=== PATIENT | female | born 1980 | race Two or more races ===

== ENCOUNTER 2021-03-06 19:24 | Observation (INO) ==
[2021-03-06] MEDS ORDERED: MAG SULFATE 4GM BOLUS FROM BAG IV ONE (20:22)
[2021-03-06] MEDS ORDERED: MAG SULFATE 6GM BOLUS FROM BAG IV ONE (20:22)
[2021-03-06] MEDS ORDERED: hydrALAZINE HCL 20 MG/ML VIAL IV STA (20:22)
[2021-03-06] MEDS ORDERED: BETAMETH SOD PHOS/ACETATE IA 6 MG/ML IM STA (20:29)
[2021-03-06] MEDS ORDERED: LACTATED RINGER'S 1,000 ML IV SCH (20:30)
[2021-03-06] MEDS ORDERED: MAGNESIUM SULFATE / WTR 40 GM/1,000 ML BAG IV SCH (20:45)
--- NOTE | 2021-03-06 20:47 | History & Physical Report ---
Date of Service March 06, 2021 Assessment & Plan (1) Chronic hypertension with superimposed preeclampsia: History of Present Illness Chief Complaint: high blood pressure Primary Care Provider: Edwin Bustamante MD 40 F [id number] at 26.2 weeks with elevate BP at home and headaches all day not feeling well today. Denies visual symptoms or any dizziness. Is on Labetalol currently 300 mg bid and 81 mg ASA daily. Has history of chronic hypertension before getting . Strong family history of hypertension. No contractions or bleeding. Good movement. Denies any epistric pain or RUQ pain. No nausea or vomiting. Allergies Allergy/AdvReac Type Severity Reaction Status Date / Time No Known Allergies Allergy Unverified 05/13/20 12:23 Home Medications Medication Instructions Recorded Confirmed Type [id number] fumarate-FA 1 tab PO DAILY 05/13/20 05/13/20 History [] lactobacillus combination no.4 3,000 mmu cells PO DAILY 05/13/20 05/13/20 History [Probiotic] Patient History Medical History (Updated 03/06/21 @ 21:02 by Tyrell North MD) No pertinent past medical history Social History Smoking Status: Former smoker Second Hand Exposure: No; Hx Alcohol Use: No Hx Substance Use: No Preferred Language: Armenian Communication Ability: Effective 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 Beliefs That Will Affect Care: None marital status: Current Living Situation: Spouse and Family Current Living Situation Comment: and step daughter Feels Safe at Home: Yes Safety Concerns: Feels Safe 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 x1 Review of Systems All systems reviewed & are unremarkable except as noted in HPI & below positive headaches today Physical Exam 2 Constitutional: WD/WN, vitals as above + ill appearing Eyes: PERRL, conjunctivae normal, anicteric sclerae Neck: trachea midline, no thyromegaly Respiratory: normal respiratory effort, lungs clear to auscultation Cardiovascular: RRR, no murmur, no edema Rate/Rhythm: regular rate Skin: no rashes, warm and dry 1+ edema Neurologic: patellar DTR's 2+ bilat, sensation intact reflexes are brisk Psychiatric: A+Ox3, euthymic affect Genitourinary: OB Exam Monitor Tracing: + external FHT monitor used, + external uterine monitor used, + category I and + normal FHT variability Results & Data ([facility]) Vital Signs (Past 12 Hours) Vital Signs Temp Pulse Resp BP 03/06/21 20:31 79 214/116 H 03/06/21 20:19 83 179/108 H 03/06/21 20:09 81 182/102 H 03/06/21 20:00 74 183/101 H 03/06/21 19:51 36.7 C 76 16 200/117 H Laboratory Results Laboratory Results - last 72 hr 03/06/21 20:38 WBC 10.80 RBC 3.69 L Hgb 11.5 L Hct 33.1 L MCV 89.7 MCH 31.2 MCHC 34.7 RDW Std Deviation 41.7 RDW Coeff of Ebonie 12.8 Plt Count 239 MPV 9.7 Immature Gran % (Auto) 0.4 Neut % (Auto) 67.1 Lymph % (Auto) 23.2 [place] % (Auto) 7.9 Eos % (Auto) 1.2 Baso % (Auto) 0.2 Neut # (Auto) 7.25 H Lymph # (Auto) 2.51 [place] # (Auto) 0.85 H Eos # (Auto) 0.13 Baso # (Auto) 0.02 Immature Gran # (Auto) 0.04 H Code Status & VTE Plan VTE Prophylaxis Plan VTE Prophylaxis will be ordered: No Monitoring External Monitor Cat 1
[2021-03-06 20:48] LABS: Basophils # (auto) 0.02 K/uL (0-0.2); Basophils % (auto) 0.2 %; Eosinophils # (auto) 0.13 K/uL (0-0.5); Eosinophils % (auto) 1.2 %; Hematocrit (blood only) 33.1 % (37-47); Hemoglobin 11.5 g/dL (12.0-16.0); Immature Granulocytes # (auto) 0.04 K/uL (0.00-0.02); Immature Granulocytes % (auto) 0.4 %; Lymphocytes # (auto) 2.51 K/uL (1.2-3.4); Lymphocytes % (auto) 23.2 %; Mean Corpuscular Hemoglobin 31.2 pg (25-34); Mean Corpuscular Volume 89.7 fL (80-100); Mean Platelet Volume 9.7 fL (7.4-10.4); Monocytes # (auto) 0.85 K/uL (0.11-0.59); Monocytes % (auto) 7.9 %; Neutrophils # (auto) 7.25 K/uL (1.4-6.5); Neutrophils % (auto) 67.1 %; Platelet Count 239 K/uL (130-400); RDW Coefficient of Variation 12.8 % (11.5-14.5); RDW Standard Deviation 41.7 fL (36.4-46.3); Red Blood Count 3.69 M/uL (4.2-5.4)
[2021-03-06 20:51] LABS: Mean Corpuscular Hgb Conc 34.7 g/dL (32-36)
[2021-03-06] MEDS ORDERED: hydrALAZINE HCL 20 MG/ML VIAL IV ONE ×2 (20:54→21:10)
[2021-03-06 21:04] LABS: Alanine Aminotransferase 28 U/L (12-78); Albumin Level 2.5 gm/dl (3.4-5.0); Aspartate Aminotransferase 21 U/L (15-37); BUN Creatinine Ratio 24.7 (10-20); Bilirubin Direct < 0.1 mg/dl (0-0.2); Blood Urea Nitrogen 16 mg/dl (7-18); Calcium 9.3 mg/dl (8.5-10.1); Carbon Dioxide 22 mmol/L (21-32); Chloride 107 mmol/L (98-107); Creatinine Clr Calc Pharmacy 125.4 ml/min; Est GFR (African American) 129.6 ml/min; Est GFR (Non-African American) 111.8 ml/min; Glucose 103 mg/dl (70-99); Potassium 3.7 mmol/L (3.5-5.1); Sodium 139 mmol/L (136-145); Uric Acid 5.3 mg/dl (2.6-7.2)
[2021-03-06 21:08] LABS: Albumin Globulin Ratio 0.6 (0.9-2); Alkaline Phosphatase 71 U/L (45-117); Bilirubin,Total 0.2 mg/dl (0.2-1); Globulin 3.9 gm/dl (2.5-4.0); Total Protein 6.4 gm/dl (6.4-8.2)
--- NOTE | 2021-03-14 22:04 | Discharge Summary (DS) ---
REASON FOR ADMISSION AND HOSPITAL COURSE: The patient is a 40-year-old female who presents on 2020 to labor and delivery with elevated blood pressure at home. She is P0-0-1-0, at 26 weeks and 2 days with headaches, not feeling well. She denied any visual changes. She had been on labetalol 200 mg b.i.d. and 81 mg of aspirin. She denies any right upper gastric pain, any nausea or vomiting. Up on presentation to the hospital, her blood pressure initially was well over 214/116. She was given s everal rescue doses of Apresoline and then transferred via helicopter to [place] for management of c hronic hypertension with superimposed preeclampsia, severe features. CONDITION ON DISCHARGE: Stable and she was discharged via helicopter to [place] for further evaluat ion and treatment. Job ID: [id number]
== END 2021-03-06 21:20 | disposition short-term general hospital (02) ==
LOC: OPB 19:24 → 4S1 19:37 → INTOOBSV 20:34